=== PATIENT | male | born 1945 | race Caucasian/White ===

== ENCOUNTER 2017-06-30 08:39 | Day surgery (SDC) | payer OTHER ==
[2017-06-28 16:08] VITALS: BMI 18.0
[~2017-06-30] VITALS: Ht 170.2 cm; Wt 54.0 kg
[~2017-06-30 08:39] MED LIST: ASCA500 PO; ASPI81TA28 PO; DEXL60CA4 PO; FERR1TAB23 PO; FLM4 PO; LACTATED RINGER'S 1000ML 1,000 ML IV SCH; LISI20TA3 PO; LORA-741 PO; OXYC-88 PO; SIMV20TA2 PO
[2017-06-30] MEDS ORDERED: LACTATED RINGER'S 1000ML 1,000 ML IV ONE (08:45)
[2017-06-30 09:00] VITALS: BP 143/68; PULSE 70; TEMP 36.6; O2SAT 98; Ht 170.2 cm; Wt 54.0 kg
--- NOTE | 2017-06-30 09:50 | Endo History and Physical ---
History & Physical Date of Service: Jun 30, 2017. Chief Complaint: Early satiety and abnormal imaging studies Referring Physician: Britt Jose Maria History of Present Illness 71-year-old male with a past medical history notable for bladder cancer presenting for evaluation of weight loss over 4-6 weeks. He notes feeling full easily. The patient's imaging studies include a CT and ultrasound which showed mild dilation of his common bile duct. Liver associated enzymes appear to be within normal limits except for his bilirubin which is just above the upper limits of normal. The patient denies having difficulty swallowing pain with swallowing fevers chills or sweats. Past Medical History Hypertension Depression Bladder Cancer ([facility]) GERD Hypercholesterolemia Past Surgical History Hx Cardiac Surgery: No Hx Abdominal Surgery: Yes (LEX) Hx Post-Op Nausea and Vomiting: No Hx Urinary Tract Surgery: Yes (CYSTO/TURBT) Social History Smoking Status: Current Every Day Smoker Hx Substance Use: No Hx Alcohol Use: No Allergies Coded Allergies: No Known Allergies (Unverified , 06/29/17) Current Medications Reported Home Medications Medications Dose Route/Sig Max Daily Dose Days Date Category Aspirin Ec (Aspirin) 81 Mg Tab 81 Mg PO QAM 06/28/17 Reported Vitamin C (Ascorbic Acid) 500 Mg Tab 500 Mg PO QAM 06/28/17 Reported Iron (Ferrous Sulfate) 325 Mg Tab 1 Tab PO QAM 06/28/17 Reported Tamsulosin HCl 0.4 Mg Cap 0.8 Mg PO QPM 06/28/17 Reported Ativan (Lorazepam) 0.5 Mg Tab 0.5 Mg PO HS PRN 06/28/17 Reported Oxycodone/Acetaminophen 10MG/325MG 1 Tab Tab 1 Tab PO Q4H PRN 06/28/17 Reported Dexilant (Dexlansoprazole) 60 Mg Cap 1 Cap PO QAM 06/28/17 Reported Prinivil (Lisinopril) 20 Mg Tab 20 Mg PO QAM 06/28/17 Reported Zocor (Simvastatin) 20 Mg Tab 20 Mg PO QPM 06/28/17 Reported Vital Signs Weight (Kilograms): 54.00 Height (Feet): 5 Height (Inches): 7 Date Time Temp Pulse Resp B/P (MAP) Pulse Ox O2 Delivery O2 Flow Rate FiO2 06/30/17 09:00 36.6 70 20 143/68 (93) 98 Room Air Physical Exam General Appearance: no apparent distress, + pertinent finding (thin-appearing male) Respiratory/Chest: Auscultation: breath sounds normal Cardiovascular: Heart Auscultation: RRR Abdomen: Inspection & Palpation: soft Assessment and Plan Patient referred for evaluation of abnormal imaging studies and weight loss. We are planning to proceed with an upper endoscopy and endoscopic ultrasound for further evaluation. We have discussed the risks and benefits to include bleeding, infection, perforation, pancreatitis and insufficient cellularity in the event that a fine-needle aspiration is performed.
[2017-06-30] MEDS ORDERED: MIDAZOLAM HCL 1 MG/ML 2ML VIAL ONE (09:55)
[2017-06-30] MEDS ORDERED: FENTANYL CITRATE INJ 50 MCG/1 ML 2 ML VIAL ONE (09:55)
[2017-06-30] MEDS ORDERED: PROMETHAZINE HCL INJ 6.25 MG in SODIUM CHLORIDE 0.9% 50ML 50 ML IV PRN (10:15)
[2017-06-30] MEDS ORDERED: ONDANSETRON INJ 2 MG/ML 2 ML VIAL IV PRN ×2 (10:15→10:45)
[2017-06-30] MEDS ORDERED: ATROPINE SULFATE 0.1 MG/ML 5ML SYR IV PRN (10:15)
[2017-06-30] MEDS ORDERED: EpHEDrine SULFATE INJ 50 MG/ML AMP IV PRN (10:15)
[2017-06-30] MEDS ORDERED: FENTANYL CITRATE INJ 50 MCG/1 ML 2 ML VIAL IV PRN (10:15)
[2017-06-30] MEDS ORDERED: ROCURONIUM BROMIDE 10 MG/ML 5 ML VIAL IV ONE (10:19)
[2017-06-30] MEDS ORDERED: ONDANSETRON INJ 2 MG/ML 2 ML VIAL ONE (10:19)
[2017-06-30] MEDS ORDERED: DEXAMETHASONE SOD INJ 4 MG/ML VIAL ONE (10:19)
[2017-06-30] MEDS ORDERED: LARYING-O-JET KIT (LTA) ONE ×2 (10:19)
[2017-06-30] MEDS ORDERED: LIDOCAINE HCL 2% 2 ML VIAL (20MG/ML) ONE (10:19)
[2017-06-30] MEDS ORDERED: PROPOFOL IV EMULSION 10 MG/ML 20 ML VIAL IV ONE (10:19)
[2017-06-30] MEDS ORDERED: EpHEDrine SULFATE 50MG/5ML SYR ONE (10:26)
--- NOTE | 2017-06-30 10:38 | [facility] Post Operative Brief Note ---
Immediate Operative Summary Operative Date Jun 30, 2017. Pre-Operative Diagnosis Weight Loss, Dilated Common Bile Duct Post-Operative Diagnosis Weight Loss, mild dilation of the CBD Procedure(s) Performed Upper Endoscopic Ultrasonography, with Gastric and Duodenal Biopsies Surgeon Dr. Darrin King Liability Claims Examiner Surgeon(s) none Estimated Blood Loss 0cc Findings 7.5 mm CBD No pancreatic mass seen No CBD stones seen Specimens GASTRIC BIOPSIES Anesthesia General Complication(s) None Disposition Recovery Room / PACU
--- NOTE | 2017-06-30 10:39 | Discharge Instructions ---
Endoscopy Patient Instructions Date / Procedure(s) Performed Jun 30, 2017. EGD, Other (Endoscopic Ultrasound) Allergy Information Coded Allergies: No Known Allergies (Unverified , 06/29/17) Discharge Date / Findings Jun 30, 2017. 7.5 mm CBD No pancreatic masses seen No common bile duct stone seen Diffuse gastritis seen Medication Instructions Restart Stopped Medication(s): Reported Home Medications Medications Dose Route/Sig Max Daily Dose Days Date Category Aspirin Ec (Aspirin) 81 Mg Tab 81 Mg PO QAM 06/28/17 Reported Vitamin C (Ascorbic Acid) 500 Mg Tab 500 Mg PO QAM 06/28/17 Reported Iron (Ferrous Sulfate) 325 Mg Tab 1 Tab PO QAM 06/28/17 Reported Tamsulosin HCl 0.4 Mg Cap 0.8 Mg PO QPM 06/28/17 Reported Ativan (Lorazepam) 0.5 Mg Tab 0.5 Mg PO HS PRN 06/28/17 Reported Oxycodone/Acetaminophen 10MG/325MG 1 Tab Tab 1 Tab PO Q4H PRN 06/28/17 Reported Dexilant (Dexlansoprazole) 60 Mg Cap 1 Cap PO QAM 06/28/17 Reported Prinivil (Lisinopril) 20 Mg Tab 20 Mg PO QAM 06/28/17 Reported Zocor (Simvastatin) 20 Mg Tab 20 Mg PO QPM 06/28/17 Reported Provider Instructions Activity Restrictions - No exercising or heavy lifting for 24 hours. - Do not drink alcohol the day of the procedure. - Do not drive a car or operate machinery until the day after the procedure. - Do not make any important decisions or sign important papers in 24 hours after the procedure. Following Day: - Return to full activity which may include returning to work/school. Diet Start your diet with liquids and light foods (jello, soup, juice, toast). Then eat your usual diet if not nauseated. Treatment For Common After Affects For mild abdominal pain, bloating, or excessive gas: - Rest - Eat lightly - Lie on right side Follow-Up Information Await gastric biopsy results No pancreatic mass seen. No common bile duct stones seen. Anesthesia Information What You Should Know You have had a procedure that required some medicine to reduce anxiety and discomfort. This treatment is called moderate sedation. After receiving the treatment, you may be sleepy, but you will be able to breathe on your own. The effects of the treatment may last for several hours. Follow these instructions along with Activity/Diet recommendations noted above: * Do NOT do anything where dizziness or clumsiness would be dangerous. * Rest quietly at home today, then you can be up and about tomorrow. * Have a responsible person stay with you the rest of today. * You may have had an I.V. today. If so, you may take the dressing off later today. Recommendations Call your doctor if: * Trouble breathing * Continuous vomiting for more than 24 hours * Temperature above 101 degrees * Severe abdominal pain or bloating * Pain not relieved by pain medicine ordered * There is increased drainage or redness from any incision * A large amount of rectal bleeding greater than 2-3 tablespoons. (If you had a polyp/s removed or have hemorrhoids, a small amount of blood - from the rectum is to be expected.) * You have any unanswered questions or concerns. IN THE EVENT OF A SERIOUS EMERGENCY, GO TO THE NEAREST EMERGENCY ROOM Your discharge instructions were prepared by provider Darrin King. Patient Instructions Signature Page Maged Schmitz Patient (or Guardian) Signature/Date: I have read and understand the instructions given to me by my caregivers. Caregiver/RN/Doctor Signature/Date: The above-named patient and/or guardian has received patient instructions on this date. + Original Patient Signature Page (only) stays with chart. Please make copy for patient.
[2017-06-30 11:25] VITALS: BP 139/69; PULSE 57; TEMP 36.6; O2SAT 97
--- NOTE | 2017-06-30 11:34 | Anesthesiology Progress Note ---
Anesthesia Post Op Note Date & Time Jun 30, 2017 at 11:34 Vital Signs Pain Intensity: 0 Vital Signs Past 12 Hours Date Time Temp Pulse Resp B/P (MAP) Pulse Ox O2 Delivery O2 Flow Rate FiO2 06/30/17 11:20 36.6 52 18 148/69 97 Room Air 06/30/17 11:10 56 18 137/73 97 Room Air 06/30/17 11:00 51 18 139/70 100 Oxymask 10 06/30/17 10:50 51 18 146/67 100 Oxymask 10 06/30/17 10:41 36 55 16 142/67 100 Oxymask 10 06/30/17 09:00 36.6 70 20 143/68 (93) 98 Room Air Notes Mental Status: alert / awake / arousable, participated in evaluation Pt Amnestic to Procedure: Yes Nausea / Vomiting: adequately controlled Pain: adequately controlled Airway Patency, RR, SpO2: stable & adequate BP & HR: stable & adequate Hydration State: stable & adequate Anesthetic Complications: no major complications apparent
[2017-06-30 11:55] VITALS: BP 159/61; PULSE 49; TEMP 36.6; O2SAT 97
[2017-06-30 12:25] VITALS: BP 149/68; PULSE 51; TEMP 36.6; O2SAT 99
--- NOTE | 2017-06-30 16:09 | GI REPORT ---
Procedure Date: 06/30/2017 10:05 AM Procedure: Upper GI endoscopy Indications: Abnormal CT of the GI tract, Abnormal ultrasound of the GI tract, Weight loss Medicines: General Anesthesia Complications: No immediate complications. Estimated blood loss: Minimal. Estimated Blood Loss: Estimated blood loss was minimal. Procedure: Pre-Anesthesia Assessment: - Prior to the procedure, a History and Physical was performed, and patient medications, allergies and sensitivities were reviewed. The patient's tolerance of previous anesthesia was reviewed. - The risks and benefits of the procedure and the sedation options and risks were discussed with the patient. All questions were answered and informed consent was obtained. - Patient identification and proposed procedure were verified prior to the procedure by the physician, the nurse and the wire winder. The procedure was verified in the procedure room. - Pre-procedure physical examination revealed no contraindications to sedation. - ASA Grade Assessment: III - A patient with severe systemic disease. - After reviewing the risks and benefits, the patient was deemed in satisfactory condition to undergo the procedure. - The anesthesia plan was to use general anesthesia. - Immediately prior to administration of medications, the patient was re-assessed for adequacy to receive sedatives. - The heart rate, respiratory rate, oxygen saturations, blood pressure, adequacy of pulmonary ventilation, and response to care were monitored throughout the procedure. - The physical status of the patient was re-assessed after the procedure. After obtaining informed consent, the endoscope was passed under direct vision. Throughout the procedure, the patient's blood pressure, pulse, and oxygen saturations were monitored continuously. The scope was introduced through the mouth, and advanced to the third part of duodenum. The upper GI endoscopy was accomplished without difficulty. The patient tolerated the procedure well. Findings: The examined esophagus was normal. The Z-line was regular and was found 44 cm from the incisors. Diffuse mild inflammation characterized by congestion (edema), erythema and granularity was found in the entire examined stomach. Biopsies were taken with a cold forceps for histology. Estimated blood loss was minimal. A single 4 mm sessile polyp with no bleeding and no stigmata of recent bleeding was found in the gastric body. Biopsies were taken with a cold forceps for histology. Estimated blood loss was minimal. The examined duodenum was normal. Biopsies for histology were taken with a cold forceps for for evaluation of celiac disease. Estimated blood loss was minimal. Impression: - Normal esophagus. - Z-line regular, 44 cm from the incisors. - Chronic gastritis. Biopsied. - A single gastric polyp. Biopsied. - Normal examined duodenum. Biopsied. Recommendation: - Perform an upper endoscopic ultrasound (UEUS) today. - Await pathology results. Darrin King D.O. Darrin King, 06/30/2017 10:18:18 AM This report has been signed electronically. Note Initiated On: 06/30/2017 10:05 AM I attest to the content of the Intraoperative Record and orders documented therein, exceptions below
--- NOTE | 2017-06-30 16:09 | GI REPORT ---
Procedure Date: 06/30/2017 8:55 AM Procedure: Upper EUS Indications: Common bile duct dilation (acquired) seen on CT scan, Abnormal ultrasound of the abdomen, Weight loss Medicines: General Anesthesia Complications: No immediate complications. Estimated blood loss: Minimal. Estimated Blood Loss: Estimated blood loss was minimal. Estimated blood loss was minimal. Procedure: Pre-Anesthesia Assessment: - Prior to the procedure, a History and Physical was performed, and patient medications, allergies and sensitivities were reviewed. The patient's tolerance of previous anesthesia was reviewed. - The risks and benefits of the procedure and the sedation options and risks were discussed with the patient. All questions were answered and informed consent was obtained. - Patient identification and proposed procedure were verified prior to the procedure by the physician, the nurse and the public policy professor. The procedure was verified in the procedure room. - Pre-procedure physical examination revealed no contraindications to sedation. - ASA Grade Assessment: III - A patient with severe systemic disease. - After reviewing the risks and benefits, the patient was deemed in satisfactory condition to undergo the procedure. - The anesthesia plan was to use general anesthesia. - Immediately prior to administration of medications, the patient was re-assessed for adequacy to receive sedatives. - The heart rate, respiratory rate, oxygen saturations, blood pressure, adequacy of pulmonary ventilation, and response to care were monitored throughout the procedure. - The physical status of the patient was re-assessed after the procedure. After obtaining informed consent, the endoscope was passed under direct vision. Throughout the procedure, the patient's blood pressure, pulse, and oxygen saturations were monitored continuously. The Endosonoscope was introduced through the mouth, and advanced to the second part of duodenum. The upper EUS was accomplished without difficulty. The patient tolerated the procedure well. Findings: Endosonographic Finding : There was no sign of significant endosonographic abnormality in the ampulla. No masses were identified. Evidence of a previous cholecystectomy was identified endosonographically. There was dilation in the common bile duct which measured up to 7.5 mm. There was no sign of significant endosonographic abnormality in the left lobe of the liver. Homogeneous parenchyma, no focal pathology and no masses were identified. No lymphadenopathy seen. There was no sign of significant endosonographic abnormality in the left adrenal gland. No adrenal gland enlargement was identified. Pancreatic parenchymal abnormalities were noted in the entire pancreas. These consisted of atrophy. The PD was 4.5 mm in the had and 1.5 mm in the body (normal). Impression: - Normal ampulla. - Evidence of a cholecystectomy. - 7.5 mm CBD. - Normal left lobe of the liver. - Endosonographic images of the left adrenal gland were unremarkable. - Pancreatic parenchymal abnormalities consisting of atrophy were noted in the entire pancreas. - No specimens collected. Recommendation: - Discharge patient to home (ambulatory). - Advance diet as tolerated today. - Observe patient's clinical course. Darrin King D.O. Darrin King, 06/30/2017 10:43:53 AM This report has been signed electronically. Note Initiated On: 06/30/2017 8:55 AM I attest to the content of the Intraoperative Record and orders documented therein, exceptions below
== END 2017-06-30 12:30 | disposition home or self-care (01) ==
LOC: C.ACU 08:39
PROVIDERS: ATTEND Internal Medicine Gastroenterology
DX: K29.50 Unspecified chronic gastritis without bleeding (principal); K31.7 Polyp of stomach and duodenum; I10 Essential (primary) hypertension; K21.9 Gastro-esophageal reflux disease without esophagitis; Z85.51 Personal history of malignant neoplasm of bladder; E78.00 Pure hypercholesterolemia, unspecified; F32.9 Major depressive disorder, single episode, unspecified; F17.210 Nicotine dependence, cigarettes, uncomplicated